=== PATIENT | male | born 1975 | race Caucasian/White ===

== ENCOUNTER 2025-01-06 08:25 | Day surgery (SDC) | payer OTHER ==
[2024-12-29 18:13] VITALS: BMI 34.2
[2025-01-06] MEDS ORDERED: ceFAZolin SODIUM 1 GM VIAL ONE (09:06)
[2025-01-06] MEDS ORDERED: MIDAZOLAM HCL 2 MG/2 ML SINGLE DOSE VIAL ONE ×2 (09:06→11:27)
[2025-01-06] MEDS ORDERED: VANCOMYCIN 1,000 MG VIAL (RESTRICTED TO ID ONLY) ONE ×2 (09:06→10:06)
[2025-01-06] MEDS ORDERED: PROPOFOL 20 ML ONE (09:12)
[2025-01-06] MEDS ORDERED: ACETAMINOPHEN INJECTION 100 ML ONE (09:58)
[2025-01-06] MEDS ORDERED: BUPIVACAINE HCL/PF 0.5% (5MG/ML) 10 ML VIAL ONE (09:58)
[2025-01-06] MEDS ORDERED: DEXMEDETOMIDINE HCL 200 MCG/2 ML IVPB ONE (09:58)
[2025-01-06] MEDS ORDERED: ROPIVACAINE HCL/PF 100 MG/20 ML VIAL ONE (09:58)
[2025-01-06] MEDS ORDERED: oxyCODONE HCL 5 MG TABLET PO PRN (10:35)
[2025-01-06] MEDS ORDERED: ONDANSETRON 4 MG/2 ML VIAL IVPUSH PRN ×2 (10:35→14:46)
[2025-01-06] MEDS ORDERED: TRANEXAMIC ACID 1000 MG/10 ML VIAL ONE ×2 (11:59→13:36)
[2025-01-06] MEDS ORDERED: FENTANYL CITRATE/PF 50 MCG/ML VIAL ONE (14:46)
[2025-01-06] MEDS ORDERED: MAG HYDROX/AL HYDROX/SIMETH 30 ML UNIT-DOSE CUP PO PRN (14:46)
[2025-01-06] MEDS: LACTATED RINGERS SOLUTION 1,000 ML IV SCH ×2 (16:43)
[2025-01-06] MEDS: oxyCODONE HCL 5 MG TABLET PO PRN (17:18)
[2025-01-06] MEDS: ACETAMINOPHEN 500 MG TABLET (FP) PO SCH (17:20)
[2025-01-06] MEDS: CEFAZOLIN 3 GM in DEXTROSE 5%-WATER - 50 ML IVPB SCH (20:14)
[2025-01-06] MEDS: GABAPENTIN 300 MG CAPSULE PO SCH (21:19)
[2025-01-06] MEDS: SENNOSIDES/DOCUSATE COMBO (SENNA PLUS) TABLET (UD) PO SCH (21:19)
[2025-01-07 07:47] LABS: HEMATOCRIT 37.1 % (35.4-49); HEMOGLOBIN 12.6 G/dL (11.7-16.9); MCH 30.5 pg (25.7-33.7); MEAN CELL VOLUME 89.7 fl (80-96); MEAN PLT VOLUME 7.4 fl (7.5-11.1); PLATELET COUNT 227.5 10^3/uL (134-434); RBC 4.14 10^6/uL (4.00-5.60); RDW 14.4 % (11.9-15.9); WHITE BLOOD COUNT 9.5 10^3/uL (4.0-10.8)
[2025-01-07 08:54] LABS: CALCIUM 8.1 mg/dl (8.5-10.1); CREATININE 0.9 mg/dl (0.6-1.3); POTASSIUM 3.6 mmol/L (3.5-5.1)
[2025-01-07] MEDS: amLODIPine BESYLATE 2.5 MG TABLET (FP) PO SCH (09:22)
[2025-01-07] MEDS: MULTIVITAMINS (DAILY MVI) TABLET (FP) PO SCH (09:22)
[2025-01-07] MEDS: PANTOPRAZOLE 40 MG TABLET PO SCH (09:22)
[2025-01-07] MEDS: ASPIRIN COATED 81 MG TABLET.EC PO SCH (09:22)
[2025-01-07] MEDS: GABAPENTIN 100 MG CAPSULE PO SCH (09:24)
[2025-01-07] MEDS ORDERED: amLODIPine BESYLATE 2.5 MG TABLET (FP) PO SCH (10:00)
[2025-01-07] MEDS ORDERED: REFRIGERATED ANITBIOTICS ONE (11:42)
[2025-01-07] MEDS: CEFAZOLIN SODIUM 3 GM in DEXTROSE 5%-WATER 100 ML IVPB SCH (11:46)
[2025-01-07 14:43] VITALS: BP 119/66; PULSE 92; RESP 18; TEMP 99.7
== END 2025-01-07 16:49 | disposition home or self-care (01) ==
LOC: SUATTDRO 08:25 → FASUSAT 08:25 → FM/S 15:34 → FASUSAT 01-07 16:49
PROVIDERS: ATTEND Internal Medicine
PROC: 8E0Y0CZ Robotic Assisted Procedure of Lower Extremity, Open Approach (ICD-10-PCS; 2025-01-06)
PROC: 0SRB0JA Replacement of Left Hip Joint with Synthetic Substitute, Uncemented, Open Approach (ICD-10-PCS; principal; 2025-01-06 11:37)
DX: M16.12 Unilateral primary osteoarthritis, left hip (principal)
CPT/HCPCS: 20985; 27130; C1776; S2900; 36415; 73502-TC-LT-FY; 80048; 85027; 88305-TC; 88311-TC; 97010-GP; 97116-GP; 97162-GP; J0131